=== PATIENT | male | born 1950 | race Caucasian/White ===

== ENCOUNTER 2016-10-06 14:49 | Emergency (ER) | payer MEDICARE ==
[~2016-10-06] VITALS: Ht 177.8 cm; Wt 90.0 kg
[2016-10-06 14:58] VITALS: BP 140/79; PULSE 60; RESP 14; TEMP 98.6; O2SAT 97
--- NOTE | 2016-10-06 14:59 | PD ---
HPI Chief Complaint: AMS, ?SZ Time Seen by Provider: 14:50 Travel History International Travel<30 days: No Contact w/Intl Traveler<30days: No Traveled to known affect area: No History of Present Illness HPI PATIENT WAS WITNESSED TO BE ON [facility] AND APPARENTLY FELL AND WAS HAVING WHAT WAS DESCRIBED A TONIC CLONIC ACTIVITY, EMS DESCRIBED A POST ICTAL TYPE OF ACTIVITY NOT ABLE TO FOLLOW DIRECTIONS WELL....INITIALLY BY THE TIME PATIENT ARRIVED IN ED BED, HE WAS ABLE TO [facility] HIMSELF [facility].....AT A MUCH LATER TIME WAS ABLE TO COME TO BEDSIDE AND PROVIDE H /O SEIZURES ON LYRICA / TOPAMAX AND DEVICE ON CHEST IS NOT A DEFIB BUT A STIMULATOR FOR BRAIN (SEIZURE H/O 10YRS) PFSH Social History Tobacco Use: No Allergies-Medications (Allergen,Severity, Reaction): Coded Allergies: Ibuprofen (Verified Allergy, Intermediate, 10/06/16) Reported Meds & Prescriptions Reported Meds & Active Scripts Active Reported Topamax (Topiramate) 25 Mg Tab 25 Mg PO BID Lyrica (Pregabalin) 25 Mg Cap 25 Mg PO BID Review of Systems ROS Limitations: Altered Mental Status Except as stated in HPI: all other systems reviewed are Neg Physical Exam Narrative GENERAL: SKIN: Warm and dry. HEAD: Atraumatic. Normocephalic. EYES: Pupils equal and round. No scleral icterus. No injection or drainage. ENT: No nasal bleeding or discharge. Mucous membranes pink and moist. NECK: Trachea midline. No JVD. CARDIOVASCULAR: Regular rate and rhythm. RESPIRATORY: No accessory muscle use. Clear to auscultation. Breath sounds equal bilaterally. GASTROINTESTINAL: Abdomen soft, non-tender, nondistended. Hepatic and splenic margins not palpable. MUSCULOSKELETAL: Extremities without clubbing, cyanosis, or edema. No obvious deformities. NEUROLOGICAL: Awake CONFUSED, GCS 14/15. No obvious cranial nerve deficits. Motor grossly within normal limits. Five out of 5 muscle strength in the arms and legs. Normal speech. PSYCHIATRIC: Appropriate mood and affect; insight and judgment normal. Data Data Last Documented VS Vital Signs Date Time Temp Pulse Resp B/P Pulse Ox O2 Delivery O2 Flow Rate FiO2 10/06/16 15:03 18 97 Room Air 10/06/16 15:00 58 10/06/16 14:58 98.6 140/79 Orders Complete Blood Count With Diff (10/06/16 14:52) Comprehensive Metabolic Panel (10/06/16 14:52) Creatine Kinase (Cpk) (10/06/16 14:52) Prothrombin Time / Inr (Pt) (10/06/16 14:52) Act Partial Throm Time (Ptt) (10/06/16 14:52) Troponin I (10/06/16 14:52) Urinalysis - C+S If Indicated (10/06/16 14:52) Chest, Single Ap (10/06/16 14:52) Ct Brain W/O Iv Contrast(Rout) (10/06/16 14:52) Blood Glucose (10/06/16 14:52) Ecg Monitoring (10/06/16 14:52) Iv Access Insert/Monitor (10/06/16 14:52) Oximetry (10/06/16 14:52) Drug Screen, Random Urine (10/06/16 14:52) Alcohol (Ethanol) (10/06/16 14:52) Tylenol (Acetaminophen) (10/06/16 14:52) Salicylates (Aspirin) (10/06/16 14:52) Labs Laboratory Tests Test 10/06/16 15:04 White Blood Count 7.0 TH/MM3 Red Blood Count 4.72 MIL/MM3 Hemoglobin 14.9 GM/DL Hematocrit 42.7 % Mean Corpuscular Volume 90.4 FL Mean Corpuscular Hemoglobin 31.6 PG Mean Corpuscular Hemoglobin 34.9 % Concent Red Cell Distribution Width 13.8 % Platelet Count 231 TH/MM3 Mean Platelet Volume 8.5 FL Neutrophils (%) (Auto) 62.8 % Lymphocytes (%) (Auto) 25.7 % Monocytes (%) (Auto) 8.6 % Eosinophils (%) (Auto) 2.5 % Basophils (%) (Auto) 0.4 % Neutrophils # (Auto) 4.4 TH/MM3 Lymphocytes # (Auto) 1.8 TH/MM3 Monocytes # (Auto) 0.6 TH/MM3 Eosinophils # (Auto) 0.2 TH/MM3 Basophils # (Auto) 0.0 TH/MM3 CBC Comment DIFF FINAL Differential Comment Prothrombin Time 10.4 SEC Prothromb Time International 0.9 RATIO Ratio Activated Partial 26.1 SEC Thromboplast Time Sodium Level 142 MEQ/L Potassium Level 3.4 MEQ/L Chloride Level 109 MEQ/L Carbon Dioxide Level 25.8 MEQ/L Anion Gap 7 MEQ/L Blood Urea Nitrogen 14 MG/DL Creatinine 1.20 MG/DL Estimat Glomerular Filtration 52 ML/MIN Rate Random Glucose 96 MG/DL Calcium Level 8.3 MG/DL Total Bilirubin 0.3 MG/DL Aspartate Amino Transf 11 U/L (AST/SGOT) Alanine Aminotransferase 13 U/L (ALT/SGPT) Alkaline Phosphatase 56 U/L Total Creatine Kinase 39 U/L Troponin I LESS THAN 0.02 NG/ML Total Protein 6.8 GM/DL Albumin 3.5 GM/DL Acetaminophen Level LESS THAN 2.0 MCG/ML Ethyl Alcohol Level LESS THAN 3 MG/DL MDM Medical Decision Making Medical Screen Exam Complete: Yes Emergency Medical Condition: Yes Medical Record Reviewed: Yes Differential Diagnosis ICH V SEIZURE V ELECTROLYTE Narrative Course PT ARRIVED POST ICTAL BUT IMPROVED GRADUALLY AND WAS ABLE TO GIVE US HIS NAME, AND EVENTUALLY THAT WAS CORROBORATED BY HIS WHO ARRIVED WITH HIS WALLET FOR CONFIRMATION...CT NEG FOR ICH, NL ELECTROLYTE, NO E/O STATUS, AND PATIENT WAS STABLE AND AMBULATORY WITHOUT ASSISTANCE Diagnosis Primary Impression: S/P SEIZURE Patient Instructions: General Instructions, Recurrent Seizures in Adults (DC) Disposition: 01 DISCHARGE HOME Condition: Stable Pieter Hernández MD Oct 06, 2016 14:59
[2016-10-06 15:03] VITALS: RESP 18; O2SAT 97
--- NOTE | 2016-10-06 15:24 | RADRPT ---
EXAM DATE/TIME: 10/06/2016 14:58 [facility] COMPARISON: No previous studies available for comparison. INDICATIONS : Shortness of breath. Possible seizure. MEDICAL HISTORY : None. SURGICAL HISTORY : None. ENCOUNTER: Initial ACUITY: 1 day PAIN SCORE: Non-responsive. LOCATION: Bilateral chest FINDINGS: The heart is mildly prominent. The pulmonary vascular pattern is normal. The lungs are clear. Dege nerative changes and scoliosis of the thoracic spine are noted. CONCLUSION: 1. Mild cardiomegaly. 2. No acute focal pulmonary infiltrate or pulmonary vascular congestion. Titus Pierson MD on October 06, 2016 at 15:15 Board Certified Radiologist. This report was verified electronically.
[2016-10-06 15:26] LABS: AUTOMATED NEUTROPHIL # 4.4 TH/MM3 (1.8-7.7); BASOPHIL % 0.4 % (0.0-2.0); EOSINOPHIL # 0.2 TH/MM3 (0-0.4); EOSINOPHIL % 2.5 % (0.0-4.0); HEMATOCRIT 42.7 % (39.0-51.0); HEMO FLAGS DIFF FINAL; LYMPH % 25.7 % (9.0-44.0); LYMPHOCYTE # 1.8 TH/MM3 (1.0-4.8); MEAN CELL VOLUME 90.4 FL (80.0-100.0); MEAN CORPUSCULAR HEMOGLOBIN 31.6 PG (27.0-34.0); MEAN CORPUSCULAR HGB CONC 34.9 % (32.0-36.0); MONO % 8.6 % (0.0-8.0); NEUT % 62.8 % (16.0-70.0); PLATELET COUNT 231 TH/MM3 (150-450); RED BLOOD COUNT 4.72 MIL/MM3 (4.50-5.90); RED CELL DISTRIBUTION WIDTH 13.8 % (11.6-17.2)
--- NOTE | 2016-10-06 15:26 | RADRPT ---
EXAM DATE/TIME: 10/06/2016 15:11 [facility] COMPARISON: No previous studies available for comparison. INDICATIONS : Altered mental status. RADIATION DOSE: 56.35 CTDIvol (mGy) MEDICAL HISTORY : unobtainable SURGICAL HISTORY : unobtainable ENCOUNTER: Initial ACUITY: 1 day PAIN SCALE: Non-responsive LOCATION: Bilateral head TECHNIQUE: Multiple contiguous axial images were obtained of the head. Using automated exposure control and adj ustment of the mA and/or kV according to patient size, radiation dose was kept as low as reasonably a chievable to obtain optimal diagnostic quality images. DICOM format image data is available electro nically for review and comparison. FINDINGS: CEREBRUM: The ventricles are normal for age. No evidence of midline shift, mass lesion, hemorrhage or acute in farction. No extra-axial fluid collections are seen. POSTERIOR FOSSA: The cerebellum and brainstem are intact. The 4th ventricle is midline. The cerebellopontine angle i s unremarkable. EXTRACRANIAL: The visualized portion of the orbits is intact. SKULL: The calvaria is intact. No evidence of skull fracture. CONCLUSION: No acute disease. Titus Pierson MD on October 06, 2016 at 15:23 Board Certified Radiologist. This report was verified electronically.
[2016-10-06] MEDS ORDERED: PREG25 PO (15:43)
[2016-10-06] MEDS ORDERED: TOPA25TA8 PO (15:43)
[2016-10-06 15:45] LABS: APTT (PATIENT) 26.1 SEC (24.3-30.1); INTERNATIONAL NORMALIZED RATIO 0.9 RATIO; PROTHROMBIN TIME - PATIENT 10.4 SEC (9.8-11.6)
[2016-10-06 15:51] LABS: ACETAMINOPHEN LESS THAN 2.0 MCG/ML (10.0-30.0); ANION GAP 7 MEQ/L (5-15); AST (GOT) 11 U/L (15-37); BICARBONATE 25.8 MEQ/L (21.0-32.0); BLOOD UREA NITROGEN 14 MG/DL (7-18); CHLORIDE 109 MEQ/L (98-107); GLOMERULAR FILTRATION RATE 52 ML/MIN (>89); POTASSIUM 3.4 MEQ/L (3.5-5.1); SODIUM (NA) 142 MEQ/L (136-145)
[2016-10-06 15:55] LABS: ALKALINE PHOSPHATASE 56 U/L (45-117); ALT (GPT) 13 U/L (12-78); TOTAL BILIRUBIN ADULT 0.3 MG/DL (0.2-1.0)
[2016-10-06 16:14] LABS: CREATINE KINASE 39 U/L (39-308)
[2016-10-06 16:41] LABS: BLOOD, URINE NEG (NEG); COMMENT (UR) CATH-CULT NOT IND; CULTURE IF INDICATED CATH CULTURE NOT IND; GLUCOSE,URINE NEG (NEG); KETONE, URINE NEG (NEG); NITRITE,URINE NEG (NEG); PH, URINE 6.5 (5.0-8.5); SQUAMOUS EPITHELIAL CELL URINE <1 /hpf (0-5); URINE COLOR YELLOW (YELLW/STRAW)
[2016-10-06 16:51] LABS: AMPHETAMINE, URINE NEG (NEG); BARBITURATES, URINE NEG (NEG); COCAINE, URINE NEG (NEG)
== END 2016-10-06 16:40 | disposition home or self-care (01) ==
LOC: EDBD 14:49 → NEPC 14:49
DX: G40.901 Epilepsy, unspecified, not intractable, with status epilepticus (principal); I44.1 Atrioventricular block, second degree; Z79.899 Other long term (current) drug therapy; Z96.89 Presence of other specified functional implants
CPT/HCPCS: 70450; 71010; 80053; 80307; 81001; 82550; 84484; 85025; 85610; 85730; 99285